=== PATIENT | female | born 1965 | race Caucasian/White ===

== ENCOUNTER 2018-03-29 12:17 | Emergency (ER) | payer OTHER ==
[2018-03-29 13:35] LABS: URINE BLOOD (Dip) POC Negative (NEGATIVE); URINE KETONES (Dip) POC Negative (NEGATIVE); URINE LEUKOCYTE EST (Dip) POC Trace (NEGATIVE); URINE NITRITE (Dip) POC Negative (NEGATIVE); URINE TOTAL PROTEIN POC Negative (NEGATIVE)
[2018-03-29 13:35] LABS: URINE PH (Dip) POC 5.5 (5.0-8.5)
[2018-03-29 13:38] LABS: ADD MAN DIFF? NO
[2018-03-29 13:41] LABS: BASOPHILS % 0.4 % (0.0-2.0); EOSINOPHILS # 0.1 10^3/ul (0.0-0.5); EOSINOPHILS % 1.4 % (0.0-7.0); HEMATOCRIT 37.8 % (37.0-47.0); HEMOGLOBIN 12.7 g/dl (12.0-16.0); LYMPHOCYTES # 3.2 10^3/ul (0.8-2.9); LYMPHOCYTES % 35.4 % (15.0-51.0); MEAN CORPUSCULAR HEMOGLOBIN 29.9 pg (29.0-33.0); MEAN CORPUSCULAR HGB CONC 33.6 g/dl (32.0-37.0); MEAN CORPUSCULAR VOLUME 88.9 fl (82.0-101.0); MEAN PLATELET VOLUME 9.5 fl (7.4-10.4); MONOCYTE # 0.7 10^3/ul (0.3-0.9); MONOCYTES % 7.2 % (0.0-11.0); NEUTROPHILS % 55.4 % (39.0-77.0); PLATELET COUNT 204 10^3/UL (140-415); RED BLOOD COUNT 4.25 10^6/ul (4.20-5.40); RED CELL DISTRIBUTION WIDTH 12.4 % (11.5-14.5)
[2018-03-29 13:41] LABS: WHITE BLOOD COUNT 9.1 10^3/ul (4.8-10.8)
[2018-03-29] MEDS: ACETAMINOPHEN 500 MG TAB PO (13:42)
[2018-03-29 13:59] LABS: ANION GAP 15 (8-16); BLOOD UREA NITROGEN 15 mg/dl (7-20); CALCIUM 8.7 mg/dl (8.4-10.2); CARBON DIOXIDE 22 mmol/L (21-31); CHLORIDE 105 mmol/L (97-110); CREATININE 0.56 mg/dl (0.44-1.00); GLUCOSE 221 mg/dl (70-220); SODIUM 138 mmol/L (135-144)
[2018-03-29 14:00] LABS: INR 1.03; PROTIME 13.6 Sec (11.9-14.9); PT RATIO 1.1
[2018-03-29 14:10] LABS: TROPONIN-I < 0.010 ng/ml (0.000-0.120)
== END 2018-03-29 15:50 | disposition home or self-care (01) ==
LOC: FTE 12:17
DX: S09.90XA Unspecified injury of head, initial encounter (principal); N39.0 Urinary tract infection, site not specified; S00.83XA Contusion of other part of head, initial encounter; I10 Essential (primary) hypertension; E11.9 Type 2 diabetes mellitus without complications; W18.39XA Other fall on same level, initial encounter; Y92.9 Unspecified place or not applicable; Z79.84 Long term (current) use of oral hypoglycemic drugs
CPT/HCPCS: 36415; 70450; 70486; 72125; 80048; 81003; 84484; 85025; 85610; 85730; 93005; 99285-25